=== PATIENT | female | born 1960 ===

== ENCOUNTER 2018-12-11 11:10 | Outpatient (CLI) | payer MEDICAID | END 2018-12-11 11:11 | disposition home or self-care (01) | LOC: C.LAB 11:10 | DX: R53.1 Weakness (principal); R47.9 Unspecified speech disturbances ==

== ENCOUNTER 2018-12-14 12:44 | Outpatient (CLI) | payer MEDICAID | END 2018-12-14 12:45 | disposition home or self-care (01) | LOC: C.MRIC 12:45 | DX: R41.0 Disorientation, unspecified (principal); R47.9 Unspecified speech disturbances; R53.1 Weakness ==

== ENCOUNTER 2018-12-15 10:25 | Outpatient (CLI) | payer MEDICAID | END 2018-12-15 10:26 | disposition home or self-care (01) | LOC: C.EEG 10:25 | DX: R41.0 Disorientation, unspecified (principal); R47.9 Unspecified speech disturbances; R53.1 Weakness ==